=== PATIENT | female | born 1975 | race American Indian/Alaskan Native ===

== ENCOUNTER 2017-07-10 11:53 | Emergency (ER) | payer BC ==
--- NOTE | 2017-07-10 16:03 | XRay Report ---
ROUTINE CHEST, TWO VIEWS: Cough PA and lateral views demonstrate the heart and mediastinal contour to be of normal size and shape. The lungs are clear and fully expanded and the soft tissues and bony structures are normal. IMPRESSION: Normal study.
[2017-07-10] MEDS ORDERED: TESSALON PERLES PO ONE (16:49)
[2017-07-10] MEDS ORDERED: MOTRIN PO ONE (16:49)
[2017-07-10] MEDS ORDERED: MOTRIN ONE (16:51)
--- NOTE | 2017-07-10 16:54 | Emergency Department Report ---
- General Chief Complaint: Upper Respiratory Infection Stated Complaint: FLU-LIKE SYMPTOMS Time Seen by Provider: 07/10/17 15:35 Source: patient Mode of arrival: Ambulatory Limitations: No Limitations - History of Present Illness Initial Comments: This is a 41-year-old female nontoxic, well nourished in appearance, no acute signs of distress presents to the ED with c/o of productive cough, rhinorrhea, nasal congestion, body aches x3 days. Patient describes productive, yellow mucus production. Patient denies any sick contact. Patient denies any recent travels, long car rides or recent hospital stays. Denies hemoptysis, chest pain , short of breath, difficulty breathing, fever, chills, nausea, vomiting, abdominal pain, back pain, calf pain, calf tenderness. Patient denies any headache or stiff neck. Patient states past medical history includes headaches. Denies any drug allergies. MD Complaint: cough, rhinorrhea, nasal congestion -: days(s) (3) Severity: mild Severity scale (0 -10): 8 Quality: aching Consistency: constant Improves With: nothing Worsens With: nothing Associated Symptoms: rhinorrhea, nasal congestion, cough. denies: fever, chills , myalgias, diaphoresis, headache, sore throat, stiff neck, chest pain, shortness of breath, abdominal pain, nausea, vomiting, diarrhea, dysuria, rash, confusion, right sweats, weight loss, epistaxis, hoarseness, ear pain Treatments Prior to Arrival: none - Related Data Previous Rx's Medication Instructions Recorded Last Taken Type Levofloxacin [Levaquin] 500 mg PO QDAY #5 tablet 05/31/14 Unknown Rx metroNIDAZOLE [Flagyl] 500 mg PO Q8HR 5 Days tablet 05/31/14 Unknown Rx traMADol [Ultram 50 MG tab] 50 mg PO Q4HR PRN #20 tablet 05/31/14 Unknown Rx Famotidine [Pepcid] 20 mg PO Q12H #60 tablet 01/14/15 Unknown Rx Ondansetron [Zofran TAB] 8 mg PO Q8HR PRN #12 tablet 01/14/15 Unknown Rx Azithromycin [Zithromax Z-JOSELYN] 250 mg PO QDAY #6 tablet 12/15/15 Unknown Rx Benzonatate [Tessalon Perles] 100 mg PO Q8HR #14 capsule 12/15/15 Unknown Rx Cyclobenzaprine HCl [Flexeril 5 MG 5 mg PO TID PRN #10 tablet 12/15/15 Unknown Rx TAB] Azithromycin [Zithromax Z-JOSELYN] 250 mg PO DAILY #6 tablet 07/10/17 Unknown Rx Benzonatate [Tessalon Perle] 100 mg PO Q6H PRN #20 capsule 07/10/17 Unknown Rx Allergies Allergy/AdvReac Type Severity Reaction Status Date / Time No Known Allergies Allergy Verified 01/14/15 14:37 ED Review of Systems ROS: Stated complaint: FLU-LIKE SYMPTOMS Other details as noted in HPI Constitutional: denies: chills, fever Eyes: denies: eye pain, eye discharge, vision change ENT: denies: ear pain, throat pain Respiratory: cough. denies: shortness of breath, wheezing Cardiovascular: denies: chest pain, palpitations Endocrine: no symptoms reported Gastrointestinal: denies: abdominal pain, nausea, diarrhea Genitourinary: denies: urgency, dysuria, discharge Musculoskeletal: denies: back pain, joint swelling, arthralgia Skin: denies: rash, lesions Neurological: denies: headache, weakness, paresthesias Psychiatric: denies: anxiety, depression Hematological/Lymphatic: denies: easy bleeding, easy bruising ED Past Medical Hx - Past Medical History Previous Medical History?: Yes Hx Headaches / Migraines: Yes Additional medical history: fibroids, borderline diabetes, PCOS - Surgical History Past Surgical History?: Yes Additional Surgical History: Ovarian cyst removal, hernia repair. Myomectomy on 12/23/2014 - Social History Smoking Status: Never Smoker Substance Use Type: Alcohol, Non Opiate Pain, Other - Medications Home Medications: Home Medications Medication Instructions Recorded Confirmed Last Taken Type Levofloxacin [Levaquin] 500 mg PO QDAY #5 tablet 05/31/14 Unknown Rx metroNIDAZOLE [Flagyl] 500 mg PO Q8HR 5 Days tablet 05/31/14 Unknown Rx traMADol [Ultram 50 MG tab] 50 mg PO Q4HR PRN #20 tablet 05/31/14 Unknown Rx Famotidine [Pepcid] 20 mg PO Q12H #60 tablet 01/14/15 Unknown Rx Ondansetron [Zofran TAB] 8 mg PO Q8HR PRN #12 tablet 01/14/15 Unknown Rx Azithromycin [Zithromax Z-JOSELYN] 250 mg PO QDAY #6 tablet 12/15/15 Unknown Rx Benzonatate [Tessalon Perles] 100 mg PO Q8HR #14 capsule 12/15/15 Unknown Rx Cyclobenzaprine HCl [Flexeril 5 MG 5 mg PO TID PRN #10 tablet 12/15/15 Unknown Rx TAB] Azithromycin [Zithromax Z-JOSELYN] 250 mg PO DAILY #6 tablet 07/10/17 Unknown Rx Benzonatate [Tessalon Perle] 100 mg PO Q6H PRN #20 capsule 07/10/17 Unknown Rx ED Physical Exam - General Limitations: No Limitations General appearance: alert, in no apparent distress - Head Head exam: Present: atraumatic, normocephalic, normal inspection - Eye Eye exam: Present: normal appearance, PERRL, EOMI. Absent: scleral icterus, conjunctival injection, nystagmus, periorbital swelling, periorbital tenderness - ENT ENT exam: Present: normal exam, normal orophraynx, mucous membranes moist, TM's normal bilaterally, normal external ear exam - Neck Neck exam: Present: normal inspection, full ROM. Absent: tenderness, meningismus, lymphadenopathy, thyromegaly - Respiratory Respiratory exam: Present: normal lung sounds bilaterally. Absent: respiratory distress, wheezes, rales, rhonchi, stridor, chest wall tenderness, accessory muscle use, decreased breath sounds, prolonged expiratory - Cardiovascular Cardiovascular Exam: Present: regular rate, normal rhythm, normal heart sounds. Absent: bradycardia, tachycardia, irregular rhythm, systolic murmur, diastolic murmur, rubs, gallop - GI/Abdominal GI/Abdominal exam: Present: soft, normal bowel sounds. Absent: distended, tenderness, guarding, rebound, rigid, diminished bowel sounds - Rectal Rectal exam: Present: deferred - Extremities Exam Extremities exam: Present: normal inspection, full ROM, normal capillary refill. Absent: tenderness, pedal edema, joint swelling, calf tenderness - Back Exam Back exam: Present: normal inspection, full ROM. Absent: tenderness, CVA tenderness (R), CVA tenderness (L), muscle spasm, paraspinal tenderness, vertebral tenderness, rash noted - Neurological Exam Neurological exam: Present: alert, oriented X3, CN II-XII intact, normal gait, reflexes normal - Psychiatric Psychiatric exam: Present: normal affect, normal mood - Skin Skin exam: Present: warm, dry, intact, normal color. Absent: rash ED Course Vital Signs 07/10/17 12:09 Temperature 98.6 F Pulse Rate 88 Respiratory 18 Rate Blood Pressure 108/65 O2 Sat by Pulse 99 Oximetry - Reevaluation(s) Reevaluation #1: 07/10/17 16:52 Patient is speaking in full sentences with no signs of distress noted. ED Medical Decision Making - Medical Decision Making This is a 41-year-old female presents with upper respiratory infection. Patient stable and was examined by me. Chest x-ray has been obtained and the radiologist with normal exam. Wells criteria 0 points. No signs or indications of PE or DVT upon examination and physical history. Patient be treated with empirically azithromycin due to symptoms worsening. Patient received Tessalon Perle and the patient's symptoms of cough improving and subsided. Negative Influenza swab. Patient was instructed Follow-up with a primary care doctor in 3-5 days or if symptoms worsen and continue return to emergency room as soon as possible. At time time of discharge, the patient does not seem toxic or ill in appearance. No acute signs of distress noted. Patient agrees to discharge treatment plan of care. No further questions noted by the patient. Critical care attestation.: If time is entered above; I have spent that time in minutes in the direct care of this critically ill patient, excluding procedure time. ED Disposition Clinical Impression: Upper respiratory infection Qualifiers: URI type: unspecified URI Qualified Code(s): J06.9 - Acute upper respiratory infection, unspecified Disposition: DC-01 TO HOME OR SELFCARE Is pt being admited?: No Does the pt Need Aspirin: No Condition: Stable Instructions: Upper Respiratory Infection (ED), Azithromycin (By mouth), Benzonatate (By mouth) Additional Instructions: Follow-up with a primary care doctor in 3-5 days or if symptoms worsen and continue return to emergency room as soon as possible. Prescriptions: Azithromycin [Zithromax Z-JOSELYN] 250 mg PO DAILY #6 tablet Benzonatate [Tessalon Perle] 100 mg PO Q6H PRN #20 capsule PRN Reason: Cough Referrals: LICHA WEST MD [Primary Care Provider] - 3-5 Days PRIMARY CARE, [Referring] - 3-5 Days [facility] [Outside] - 3-5 Days [facility] [Outside] - 3-5 Days Forms: Work/School Release Form(ED)
[2017-07-10 17:53] VITALS: BP 121/80
== END 2017-07-10 17:51 | disposition home or self-care (01) ==
LOC: ED 11:53
DX: J06.9 Acute upper respiratory infection, unspecified (principal); G43.909 Migraine, unspecified, not intractable, without status migrainosus; E28.2 Polycystic ovarian syndrome; D21.9 Benign neoplasm of connective and other soft tissue, unspecified; Z98.890 Other specified postprocedural states
CPT/HCPCS: 71046; 87400; 99283

== ENCOUNTER 2020-12-08 22:01 | Emergency (ER) | payer BC ==
[2020-12-08 23:54] VITALS: BP 152/93
[2020-12-09 00:18] LABS: Mean Corpuscular HGB Conc 29 % (30-34); Mean Corpuscular Volume 70 fl (79-97); Platelet Count 377 K/mm3 (140-440); Red Blood Count 4.09 M/mm3 (3.65-5.03)
[2020-12-09 00:19] LABS: Hematocrit 28.8 % (30.3-42.9); Hemoglobin 8.5 gm/dl (10.1-14.3)
[2020-12-09 00:20] LABS: Red Cell Distribution Width 27.8 % (13.2-15.2)
[2020-12-09 01:46] LABS: Bacteria,Urine 1+ /HPF (Negative); Bilirubin,Urine NEG (Negative); Blood,Urine LG (Negative); Color,Urine Yellow (Yellow); Urobilinogen,Urine < 2.0 mg/dL (<2.0)
[2020-12-09 01:50] LABS: RBC,Urine > 182.0 /HPF (0.0-6.0)
[2020-12-09 01:52] LABS: Anisocytosis 2+; Total Cells Counted 100
[2020-12-09 01:53] LABS: Dimorphic RBC Yes; Hypochromasia 1+; Macrocytosis Few
[2020-12-09] MEDS ORDERED: traMADol 50 MG TAB PO ONE (02:36)
[2020-12-09] MEDS ORDERED: cephALEXin 500 MG CAP PO ONE (02:36)
[2020-12-09] MEDS ORDERED: FLUCONAZOLE 200 MG TAB PO ONE (02:48)
--- NOTE | 2020-12-09 04:12 | Emergency Department Report ---
ED Female HPI - General Chief complaint: Vaginal Bleeding Stated complaint: SHARP CRAMPS/OVARY PAIN/CLOTS Time Seen by Provider: 12/09/20 02:20 Source: patient Mode of arrival: Ambulatory Limitations: No Limitations - History of Present Illness Initial comments: Patient is a 45-year-old -[place] female with history of ovarian cyst, who presents with dysuria frequency and urgency. pt has [facility] , states she is out of pain medication. pt denies fever chills. there are no exacerbating or relieving factors. MD Complaint: vaginal bleeding - Related Data Previous Rx's Medication Instructions Recorded Last Taken Type levoFLOXacin [Levaquin] 500 mg PO QDAY #5 tablet 05/31/14 Unknown Rx metroNIDAZOLE [Flagyl] 500 mg PO Q8HR 5 Days tablet 05/31/14 Unknown Rx traMADoL [Ultram 50 MG tab] 50 mg PO Q4HR PRN #20 tablet 05/31/14 Unknown Rx Famotidine [Pepcid] 20 mg PO Q12H #60 tablet 01/14/15 Unknown Rx Ondansetron (Nf) [Zofran TAB] 8 mg PO Q8HR PRN #12 tablet 01/14/15 Unknown Rx Azithromycin [Zithromax Z-JOSELYN] 250 mg PO QDAY #6 tablet 12/15/15 Unknown Rx Cyclobenzaprine HCl [Flexeril 5 MG 5 mg PO TID PRN #10 tablet 12/15/15 Unknown Rx TAB] Azithromycin [Zithromax Z-JOSELYN] 250 mg PO DAILY #6 tablet 07/10/17 Unknown Rx Benzonatate [Tessalon Perle] 100 mg PO Q6H PRN #20 capsule 07/10/17 Unknown Rx Benzonatate [Tessalon Perles] 100 mg PO Q8HR #14 capsule 06/10/18 Unknown Rx Ibuprofen [Motrin 600 MG tab] 600 mg PO Q8H PRN #15 tablet 06/10/18 Unknown Rx Sulfamethoxazole/Trimethoprim 1 each PO BID #20 tablet 06/10/18 Unknown Rx [Bactrim Ds Tablet] cephALEXin [Keflex] 500 mg PO Q12HR 7 Days #14 cap 12/09/20 Unknown Rx traMADoL [Ultram] 50 mg PO Q6HR PRN #12 tablet 12/09/20 Unknown Rx Allergies Allergy/AdvReac Type Severity Reaction Status Date / Time No Known Allergies Allergy Verified 01/14/15 14:37 ED Review of Systems ROS: Stated complaint: SHARP CRAMPS/OVARY PAIN/CLOTS Other details as noted in HPI Constitutional: denies: chills, fever Eyes: denies: eye pain, eye discharge, vision change ENT: denies: ear pain, throat pain Respiratory: denies: cough, shortness of breath, wheezing Cardiovascular: denies: chest pain, palpitations Endocrine: no symptoms reported Gastrointestinal: denies: abdominal pain, nausea, diarrhea Genitourinary: urgency, dysuria, frequency, abnormal menses Musculoskeletal: back pain Skin: denies: rash, lesions Neurological: denies: headache, weakness, paresthesias Psychiatric: denies: anxiety, depression Hematological/Lymphatic: denies: easy bleeding, easy bruising ED Past Medical Hx - Past Medical History Previous Medical History?: Yes Hx Headaches / Migraines: Yes Additional medical history: fibroids, borderline diabetes, PCOS, Endometreosis - Surgical History Past Surgical History?: Yes Additional Surgical History: Ovarian cyst removal, hernia repair. Myomectomy on 12/23/2014 - Social History Smoking Status: Never Smoker Substance Use Type: None - Medications Home Medications: Home Medications Medication Instructions Recorded Confirmed Last Taken Type levoFLOXacin [Levaquin] 500 mg PO QDAY #5 tablet 05/31/14 Unknown Rx metroNIDAZOLE [Flagyl] 500 mg PO Q8HR 5 Days tablet 05/31/14 Unknown Rx traMADoL [Ultram 50 MG tab] 50 mg PO Q4HR PRN #20 tablet 05/31/14 Unknown Rx Famotidine [Pepcid] 20 mg PO Q12H #60 tablet 01/14/15 Unknown Rx Ondansetron (Nf) [Zofran TAB] 8 mg PO Q8HR PRN #12 tablet 01/14/15 Unknown Rx Azithromycin [Zithromax Z-JOSELYN] 250 mg PO QDAY #6 tablet 12/15/15 Unknown Rx Cyclobenzaprine HCl [Flexeril 5 MG 5 mg PO TID PRN #10 tablet 12/15/15 Unknown Rx TAB] Azithromycin [Zithromax Z-JOSELYN] 250 mg PO DAILY #6 tablet 07/10/17 Unknown Rx Benzonatate [Tessalon Perle] 100 mg PO Q6H PRN #20 capsule 07/10/17 Unknown Rx Benzonatate [Tessalon Perles] 100 mg PO Q8HR #14 capsule 06/10/18 Unknown Rx Ibuprofen [Motrin 600 MG tab] 600 mg PO Q8H PRN #15 tablet 06/10/18 Unknown Rx Sulfamethoxazole/Trimethoprim 1 each PO BID #20 tablet 06/10/18 Unknown Rx [Bactrim Ds Tablet] cephALEXin [Keflex] 500 mg PO Q12HR 7 Days #14 cap 12/09/20 Unknown Rx traMADoL [Ultram] 50 mg PO Q6HR PRN #12 tablet 12/09/20 Unknown Rx ED Physical Exam - General Limitations: No Limitations General appearance: alert, in no apparent distress - Head Head exam: Present: atraumatic, normocephalic - Eye Eye exam: Present: normal appearance, EOMI Pupils: Present: normal accommodation - ENT ENT exam: Present: mucous membranes moist - Neck Neck exam: Present: normal inspection, full ROM. Absent: tenderness - Respiratory Respiratory exam: Present: normal lung sounds bilaterally. Absent: respiratory distress, wheezes - Cardiovascular Cardiovascular Exam: Present: regular rate, normal rhythm, normal heart sounds. Absent: systolic murmur, diastolic murmur, rubs, gallop - GI/Abdominal GI/Abdominal exam: Present: soft, normal bowel sounds. Absent: distended, tenderness, guarding, rebound, rigid - Rectal Rectal exam: Present: deferred - External exam: Present: other (deferred) - Extremities Exam Extremities exam: Present: normal inspection, full ROM, normal capillary refill. Absent: tenderness - Back Exam Back exam: Present: normal inspection, full ROM. Absent: tenderness, CVA tenderness (R), CVA tenderness (L) - Neurological Exam Neurological exam: Present: alert, oriented X3, CN II-XII intact, normal gait, reflexes normal. Absent: motor sensory deficit - Psychiatric Psychiatric exam: Present: normal affect, normal mood - Skin Skin exam: Present: warm, dry, intact, normal color. Absent: rash ED Course Vital Signs 12/08/20 23:51 Temperature 98.6 F Pulse Rate 82 Respiratory 18 Rate Blood Pressure 152/93 O2 Sat by Pulse 100 Oximetry ED Medical Decision Making - Lab Data Result diagrams: 12/09/20 00:08 Labs 12/09/20 12/09/20 12/09/20 00:08 00:08 00:08 WBC 12.9 H RBC 4.09 Hgb 8.5 L Hct 28.8 L MCV 70 L MCH 21 L MCHC 29 L RDW 27.8 H Plt Count 377 Add Manual Diff Complete Total Counted 100 Seg Neuts % (Manual) 70.0 Lymphocytes % (Manual) 26.0 Monocytes % (Manual) 3.0 Eosinophils % (Manual) 1.0 Nucleated RBC % Not Reportable Seg Neutrophils # Man 9.0 H Band Neutrophils # 0.0 Lymphocytes # (Manual) 3.4 Abs React Lymphs (Man) 0.0 Monocytes # (Manual) 0.4 Eosinophils # (Manual) 0.1 Basophils # (Manual) 0.0 Metamyelocytes # 0.0 Myelocytes # 0.0 Promyelocytes # 0.0 Blast Cells # 0.0 WBC Morphology Not Reportable Hypersegmented Neuts Not Reportable Hyposegmented Neuts Not Reportable Hypogranular Neuts Not Reportable Smudge Cells Not Reportable Toxic Granulation Not Reportable Toxic Vacuolation Not Reportable Dohle Bodies Not Reportable Pelger-Huet Anomaly Not Reportable Renee Rods Not Reportable Platelet Estimate Not Reportable Clumped Platelets Not Reportable Plt Clumps, EDTA Not Reportable Large Platelets Not Reportable Giant Platelets Not Reportable Platelet Satelliting Not Reportable Plt Morphology Comment Not Reportable RBC Morphology Not Reportable Dimorphic RBCs Yes Polychromasia Not Reportable Hypochromasia 1+ Poikilocytosis Not Reportable Anisocytosis 2+ Microcytosis 1+ Macrocytosis Few Spherocytes Not Reportable Pappenheimer Bodies Not Reportable Sickle Cells Not Reportable Target Cells Not Reportable Tear Drop Cells Not Reportable Ovalocytes Not Reportable Helmet Cells Not Reportable [place] Bodies Not Reportable [place] Rings Not Reportable [place] Cells Not Reportable Bite Cells Not Reportable Crenated Cell Not Reportable Elliptocytes Not Reportable Acanthocytes (Spur) Not Reportable Rouleaux Not Reportable Hemoglobin C Crystals Not Reportable Schistocytes Not Reportable Malaria parasites Not Reportable Bob Bodies Not Reportable Hem Pathologist Commnt No HCG, Quant < 2 Urine Color Urine Turbidity Urine pH Ur Specific [place] Urine Protein Urine Glucose (UA) Urine Ketones Urine Blood Urine Nitrite Urine Bilirubin Urine Urobilinogen Ur Leukocyte Esterase Urine WBC (Auto) Urine RBC (Auto) Urine Bacteria (Auto) Urine Yeast (Budding) Blood Type O POSITIVE 12/09/20 Unknown WBC RBC Hgb Hct MCV MCH MCHC RDW Plt Count Add Manual Diff Total Counted Seg Neuts % (Manual) Lymphocytes % (Manual) Monocytes % (Manual) Eosinophils % (Manual) Nucleated RBC % Seg Neutrophils # Man Band Neutrophils # Lymphocytes # (Manual) Abs React Lymphs (Man) Monocytes # (Manual) Eosinophils # (Manual) Basophils # (Manual) Metamyelocytes # Myelocytes # Promyelocytes # Blast Cells # WBC Morphology Hypersegmented Neuts Hyposegmented Neuts Hypogranular Neuts Smudge Cells Toxic Granulation Toxic Vacuolation Dohle Bodies Pelger-Huet Anomaly Renee Rods Platelet Estimate Clumped Platelets Plt Clumps, EDTA Large Platelets Giant Platelets Platelet Satelliting Plt Morphology Comment RBC Morphology Dimorphic RBCs Polychromasia Hypochromasia Poikilocytosis Anisocytosis Microcytosis Macrocytosis Spherocytes Pappenheimer Bodies Sickle Cells Target Cells Tear Drop Cells Ovalocytes Helmet Cells [place] Bodies [place] Rings [place] Cells Bite Cells Crenated Cell Elliptocytes Acanthocytes (Spur) Rouleaux Hemoglobin C Crystals Schistocytes Malaria parasites Bob Bodies Hem Pathologist Commnt HCG, Quant Urine Color Yellow Urine Turbidity Slightly-cloudy Urine pH 5.0 Ur Specific [place]ell 1.024 Urine Protein 100 mg/dl Urine Glucose (UA) Neg Urine Ketones Tr Urine Blood Lg Urine Nitrite Neg Urine Bilirubin Neg Urine Urobilinogen < 2.0 Ur Leukocyte Esterase Tr Urine WBC (Auto) 67.0 H Urine RBC (Auto) > 182.0 Urine Bacteria (Auto) 1+ Urine Yeast (Budding) 2+ Blood Type - Radiology Data Radiology results: report reviewed, image reviewed - Medical Decision Making Patient has history of ovarian cyst and fibroids, patient is following with [facility] for this problem. Bleeding is scant at this time. There is no fever or chills. UA noted for mild yeast and bacteria. Patient treated for UTI and vaginitis [place]. Patient will follow-up with [facility] in 1 to 2 days. Patient verbalized agreement and understanding with discharge plan. Patient DC'd home in stable condition at this time. Critical care attestation.: If time is entered above; I have spent that time in minutes in the direct care of this critically ill patient, excluding procedure time. ED Disposition Clinical Impression: Abnormal uterine bleeding (AUB) Ovarian cyst Qualifiers: Laterality: bilateral Qualified Code(s): N83.201 - Unspecified ovarian cyst, right side; N83.202 - Unspecified ovarian cyst, left side UTI (urinary tract infection) Qualifiers: Urinary tract infection type: acute cystitis Hematuria presence: without hematuria Qualified Code(s): N30.00 - Acute cystitis without hematuria Disposition: TO HOME OR SELFCARE Is pt being admited?: No Does the pt Need Aspirin: No Condition: Stable Instructions: Abnormal Uterine Bleeding, Ovarian Cyst, Urinary Tract Infection, Adult Additional Instructions: Take medications as prescribed. Follow-up with [facility] in 2 to 3 days. Return to emergency department should symptoms worsen. Prescriptions: cephALEXin [Keflex] 500 mg PO Q12HR 7 Days #14 cap traMADoL [Ultram] 50 mg PO Q6HR PRN #12 tablet PRN Reason: Pain Referrals: [facility] MD ERICKA [Primary Care Provider] - 3-5 Days CHRISTIANA JONES MD [Staff Physician] - 3-5 Days Forms: Work/School Release Form(ED) Time of Disposition: 04:13
== END 2020-12-09 04:22 | disposition home or self-care (01) ==
LOC: ED 22:01
DX: N39.0 Urinary tract infection, site not specified (principal); N83.209 Unspecified ovarian cyst, unspecified side; N93.9 Abnormal uterine and vaginal bleeding, unspecified; G43.909 Migraine, unspecified, not intractable, without status migrainosus; Z98.890 Other specified postprocedural states; Z79.1 Long term (current) use of non-steroidal anti-inflammatories (NSAID); Z79.2 Long term (current) use of antibiotics; Z79.899 Other long term (current) drug therapy
CPT/HCPCS: 36415; 81001; 84702; 85007; 85025; 86900; 86901; 87086

== ENCOUNTER 2020-12-28 17:51 | Emergency (ER) | payer BC ==
[2020-12-28] MEDS ORDERED: ASPIRIN 325 MG TAB PO ONE (18:23)
--- NOTE | 2020-12-28 19:00 | XRay Report ---
CHEST PA AND LATERAL VIEWS INDICATION: CHEST PAIN....CHEST PAIN. STARTED LAST SATURDAY. RADIATES TO SHOULDER AND BACK.. COMPARISON: 07/10/2017 FINDINGS: Support devices: None Heart: Normal and unchanged Lungs/Pleura: No acute pulmonary or pleural findings. IMPRESSION: 1. No significant abnormality and no interval change. Signer Name: Armando Marshall MD Signed: 12/28/2020 6:55 PM Workstation Name: [id number]
[2020-12-28 19:50] LABS: Hematocrit 26.4 % (30.3-42.9); Hemoglobin 8.1 gm/dl (10.1-14.3); Mean Corpuscular HGB Conc 31 % (30-34); Mean Corpuscular Volume 73 fl (79-97); Platelet Count 385 K/mm3 (140-440)
[2020-12-28 19:51] LABS: Red Cell Distribution Width 26.1 % (13.2-15.2)
[2020-12-28 19:59] LABS: Alanine Aminotransferase 11 units/L (7-56); Albumin 4.3 g/dL (3.9-5); Blood Urea Nitrogen 6 mg/dL (7-17); Calcium 9.3 mg/dL (8.4-10.2); Hemolysis Index 1
[2020-12-28 20:00] LABS: BUN/Creatinine Ratio 9
[2020-12-28 20:31] LABS: Total Cells Counted 100
[2020-12-28 20:32] LABS: Anisocytosis 3+; Hypochromasia 2+; Ovalocytes Few; Poikilocytosis 1+
[2020-12-28 20:33] LABS: Platelet Estimate Consistent w Auto; Tear Drop Cells Few
--- NOTE | 2020-12-28 22:55 | Emergency Department Report ---
ED Chest Pain HPI - General Chief Complaint: Chest Pain Stated Complaint: CHEST PAINS PUI?: No Time Seen by Provider: 12/28/20 22:10 Source: patient Mode of arrival: Ambulatory Limitations: No Limitations - History of Present Illness Initial Comments: Patient is a 45-year-old female that presents emergency room with complaints of chest pain. Patient states her chest pain in her left chest radiates to her left shoulder and her left posterior neck and left trapezius muscles. Patient states that her chest pain started 4 days ago. Patient states her chest pain has remained constant. Patient denies shortness of breath. Patient states the pain is worse with movement and palpation. Patient states the pain is better with rest. Patient denies fever chills. Patient denies nausea vomiting. Patient states she has a past medical history of anemia. Patient states she does not have a past medical history of hypertension. Patient denies diaphoresis. Patient denies nausea vomiting. Patient states she has not seen her primary care. Patient states her pain is an 8 out of 10. Patient denies recent travel. Patient denies recent international travel. Patient denies exposure to the novel coronavirus. Patient denies sick contacts. Patient denies fever and chills. Patient denies cough. Patient denies diarrhea. Patient denies coming in contact with anybody with symptoms of the novel coronavirus. MD Complaint: chest pain -: Sudden, days(s) Onset: during rest Pain Location: left chest Pain Radiation: back, neck Severity: severe Severity scale (0 -10): 8 Quality: sharp Consistency: constant Improves With: rest Worsens With: palpation, movement re: denies: nausea, vomting, diaphoresis, dyspnea, sense of impending doom Other Symptoms: denies: cough, fever, syncope, rash, acid taste in mouth, leg swelling, palpitations, burping Treatments Prior to Arrival: none Aspirin use within the Past 7 Days: (0) No - Related Data On Oral Contraceptives: No Previous Rx's Medication Instructions Recorded Last Taken Type levoFLOXacin [Levaquin] 500 mg PO QDAY #5 tablet 05/31/14 Unknown Rx metroNIDAZOLE [Flagyl] 500 mg PO Q8HR 5 Days tablet 05/31/14 Unknown Rx Famotidine [Pepcid] 20 mg PO Q12H #60 tablet 01/14/15 Unknown Rx Ondansetron (Nf) [Zofran TAB] 8 mg PO Q8HR PRN #12 tablet 01/14/15 Unknown Rx Azithromycin [Zithromax Z-JOSELYN] 250 mg PO QDAY #6 tablet 12/15/15 Unknown Rx Azithromycin [Zithromax Z-JOSELYN] 250 mg PO DAILY #6 tablet 07/10/17 Unknown Rx Benzonatate [Tessalon Perle] 100 mg PO Q6H PRN #20 capsule 07/10/17 Unknown Rx Benzonatate [Tessalon Perles] 100 mg PO Q8HR #14 capsule 06/10/18 Unknown Rx Ibuprofen [Motrin 600 MG tab] 600 mg PO Q8H PRN #15 tablet 06/10/18 Unknown Rx Sulfamethoxazole/Trimethoprim 1 each PO BID #20 tablet 06/10/18 Unknown Rx [Bactrim Ds Tablet] cephALEXin [Keflex] 500 mg PO Q12HR 7 Days #14 cap 12/09/20 Unknown Rx traMADoL [Ultram] 50 mg PO Q6HR PRN #12 tablet 12/09/20 Unknown Rx Cyclobenzaprine HCl [Flexeril 5 MG 5 mg PO TID PRN #10 tablet 12/28/20 Unknown Rx TAB] Iron Fum,Ps/Folic/Bcomp,C No.9 1 each PO BID 30 Days #60 capsule 12/28/20 Unknown Rx [Integra Plus Capsule] traMADoL [Ultram 50 MG tab] 50 mg PO Q4HR PRN #12 tablet 12/28/20 Unknown Rx Allergies Allergy/AdvReac Type Severity Reaction Status Date / Time No Known Allergies Allergy Verified 12/28/20 18:16 Heart Score - HEART Score History: Slightly suspicious EKG: Normal Age: < 45 Risk factors: No known risk factors Troponin: < normal limit HEART Score: 0 - EKG Read Time Time EKG Completed: 18:25 EKG Read Time: 18:27 ED Review of Systems ROS: Stated complaint: CHEST PAINS Other details as noted in HPI Constitutional: denies: chills, fever Eyes: denies: eye pain, eye discharge, vision change ENT: denies: ear pain, throat pain Respiratory: denies: cough, shortness of breath, wheezing Cardiovascular: as per HPI, chest pain. denies: palpitations Endocrine: no symptoms reported Gastrointestinal: denies: abdominal pain, nausea, diarrhea Genitourinary: denies: urgency, dysuria, discharge Musculoskeletal: denies: back pain, joint swelling, arthralgia Skin: denies: rash, lesions Neurological: denies: headache, weakness, paresthesias Psychiatric: denies: anxiety, depression Hematological/Lymphatic: denies: easy bleeding, easy bruising ED Past Medical Hx - Past Medical History Previous Medical History?: Yes Hx Headaches / Migraines: Yes Additional medical history: fibroids, borderline diabetes, PCOS, Endometreosis, anemia - Surgical History Past Surgical History?: Yes Additional Surgical History: Ovarian cyst removal, hernia repair. Myomectomy on 12/23/2014 - Family History Family history: no significant - Social History Smoking Status: Never Smoker Substance Use Type: Alcohol - Medications Home Medications: Home Medications Medication Instructions Recorded Confirmed Last Taken Type levoFLOXacin [Levaquin] 500 mg PO QDAY #5 tablet 05/31/14 Unknown Rx metroNIDAZOLE [Flagyl] 500 mg PO Q8HR 5 Days tablet 05/31/14 Unknown Rx Famotidine [Pepcid] 20 mg PO Q12H #60 tablet 01/14/15 Unknown Rx Ondansetron (Nf) [Zofran TAB] 8 mg PO Q8HR PRN #12 tablet 01/14/15 Unknown Rx Azithromycin [Zithromax Z-JOSELYN] 250 mg PO QDAY #6 tablet 12/15/15 Unknown Rx Azithromycin [Zithromax Z-JOSELYN] 250 mg PO DAILY #6 tablet 07/10/17 Unknown Rx Benzonatate [Tessalon Perle] 100 mg PO Q6H PRN #20 capsule 07/10/17 Unknown Rx Benzonatate [Tessalon Perles] 100 mg PO Q8HR #14 capsule 06/10/18 Unknown Rx Ibuprofen [Motrin 600 MG tab] 600 mg PO Q8H PRN #15 tablet 06/10/18 Unknown Rx Sulfamethoxazole/Trimethoprim 1 each PO BID #20 tablet 06/10/18 Unknown Rx [Bactrim Ds Tablet] cephALEXin [Keflex] 500 mg PO Q12HR 7 Days #14 cap 12/09/20 Unknown Rx traMADoL [Ultram] 50 mg PO Q6HR PRN #12 tablet 12/09/20 Unknown Rx Cyclobenzaprine HCl [Flexeril 5 MG 5 mg PO TID PRN #10 tablet 12/28/20 Unknown Rx TAB] Iron Fum,Ps/Folic/Bcomp,C No.9 1 each PO BID 30 Days #60 capsule 12/28/20 Unknown Rx [Integra Plus Capsule] traMADoL [Ultram 50 MG tab] 50 mg PO Q4HR PRN #12 tablet 12/28/20 Unknown Rx ED Physical Exam - General Limitations: No Limitations General appearance: alert, in no apparent distress - Head Head exam: Present: atraumatic, normocephalic - Eye Eye exam: Present: normal appearance - ENT ENT exam: Present: mucous membranes moist - Neck Neck exam: Present: normal inspection - Respiratory Respiratory exam: Present: normal lung sounds bilaterally, chest wall tender ness. Absent: respiratory distress, wheezes, rales, rhonchi, stridor - Cardiovascular Cardiovascular Exam: Present: regular rate, normal rhythm. Absent: systolic murmur, diastolic murmur, rubs, gallop - GI/Abdominal GI/Abdominal exam: Present: soft, normal bowel sounds - Extremities Exam Extremities exam: Present: normal inspection - Back Exam Back exam: Present: normal inspection - Neurological Exam Neurological exam: Present: alert, oriented X3 - Psychiatric Psychiatric exam: Present: normal affect, normal mood - Skin Skin exam: Present: warm, dry, intact, normal color. Absent: rash ED Course Vital Signs 12/28/20 12/28/20 18:22 22:15 Temperature 98.8 F Pulse Rate 76 84 Respiratory 20 17 Rate Blood Pressure 133/79 177/90 O2 Sat by Pulse 99 100 Oximetry - Reevaluation(s) Reevaluation #1: I discussed all results and clinical findings with patient. I discussed plan of care with patient. Patient agrees with plan of care. Patient is stable for discharge. Patient will be discharged home. Patient given discharge instructions. Patient voiced understanding of discharge instructions. Patient information faxed over to our local cardiology group for further evaluation treatment of her stratification of chest pain. 12/28/20 23:02 SAVAGE score - Savage Score Age > 65: (0) No Aspirin use within the Past 7 Days: (0) No 3 or more CAD Risk Factors: (0) No 2 or more Angina events in past 24 hrs: (0) No Known CAD with more than 50% Stenosis: (0) No Elevated Cardiac Markers: (0) No ST Deviation Greater than 0.5mm: (0) No SAVAGE Score: 0 ED Medical Decision Making - Lab Data Result diagrams: 12/28/20 19:14 12/28/20 19:14 - EKG Data -: EKG Interpreted by Me EKG shows normal: sinus rhythm, axis, intervals, QRS complexes, ST-T waves Rate: normal - Radiology Data Radiology results: report reviewed, image reviewed interpreted by me: Chest x-ray: No pneumonia, no pneumothorax, no foreign body, no osseous findings, no acute findings CHEST PA AND LATERAL VIEWS INDICATION: CHEST PAIN....CHEST PAIN. STARTED LAST SATURDAY. RADIATES TO SHOULDER AND BACK.. COMPARISON: 07/10/2017 FINDINGS: Support devices: None Heart: Normal and unchanged Lungs/Pleura: No acute pulmonary or pleural findings. IMPRESSION: 1. No significant abnormality and no interval change. - Medical Decision Making Patient is a 45-year-old female who presents emergency room with complaints of chest pain. Patient chest pain rating to her left shoulder and back and posterior neck. Patient's chest pain was reproducible on exam with palpation. Patient's neck pain and shoulder pain reproduced with movement and palpation. Patient had labs done which were essentially unremarkable except for anemia. Patient had 2 neg troponins. Patient's chest pain is low risk. Since the patient presents emergency room with complaints of chest pain, the patient's information will be faxed over to local cardiology group for further evaluation and treatment with stratification. Patient had a chest x-ray which was negative for acute finding. Patient had an EKG which was negative for acute findings. I personally reviewed the chest x-ray and EKG. Patient will be discharged home with pain medications. Patient does not require any further emergency medical services or inpatient services. - Differential Diagnosis Musculoskeletal, chest pain, anxiety, chest wall sprain Critical care attestation.: If time is entered above; I have spent that time in minutes in the direct care of this critically ill patient, excluding procedure time. ED Disposition Clinical Impression: Chest wall pain Chest pain Qualifiers: Chest pain type: unspecified Qualified Code(s): R07.9 - Chest pain, unspecified Hypertension Qualifiers: Hypertension type: essential hypertension Qualified Code(s): I10 - Essential (primary) hypertension Anemia Qualifiers: Anemia type: unspecified type Qualified Code(s): D64.9 - Anemia, unspecified Disposition: DC-01 TO HOME OR SELFCARE Is pt being admited?: No Does the pt Need Aspirin: No Condition: Stable Instructions: Chest Wall Pain, [id number], Nonspecific Chest Pain, Adult, [id number], Preventing Hypertension, Hypertension (ED) Additional Instructions: Patient to follow-up with primary care in 2 to 3 days. Patient to follow-up with orthopedist and combination man in 2 to 3 days. Patient to rest. Patient to increase water. Patient to avoid strenuous exercise or heavy lifting until cleared by orthopedist and combination man. Patient to take Tylenol or ibuprofen as needed for pain. Patient to take meds as directed. Patient to return to the ER if condition worsens, changes or new symptoms arise. Patient to eat a low-salt and heart healthy diet. Patient to monitor blood pressure at home. Patient to keep a blood pressure log. Patient take blood pressure log to all follow-up appointments. Patient to increase water. Prescriptions: Cyclobenzaprine HCl [Flexeril 5 MG TAB] 5 mg PO TID PRN #10 tablet PRN Reason: Pain Iron Fum,Ps/Folic/Bcomp,C No.9 [Integra Plus Capsule] 1 each PO BID 30 Days #60 capsule traMADoL [Ultram 50 MG tab] 50 mg PO Q4HR PRN #12 tablet PRN Reason: Pain Referrals: MATT LAGUNAS MD [Primary Care Provider] - 2-3 Days AURELIANO PERLA MD [Staff Physician] - 2-3 Days NATASHA TURPIN MD [Staff Physician] - 2-3 Days Time of Disposition: 23:02
[2020-12-28 23:27] VITALS: BP 117/65
--- NOTE | 2020-12-29 09:17 | Electrocardiograph Report ---
[facility] Test Date: 2020-12-28 Test Time: 18:25:32 Pat Name: DOROTHY MENJIVAR Department: Room: Gender: F Medical Insurance Collector: KYLER : [id number] Requested By: JORGE DAVISON III Order Number: [id number] Reading MD: Onesimo Yarbrough Measurements Intervals [place] Rate: 87 P: 48 IA: 146 QRS: 18 QRSD: 84 T: 33 QT: 396 QTc: 477 Interpretive Statements Sinus rhythm nonspecific st-t No previous ECG available for comparison Electronically Signed On 12-29-2020 9:17:16 EDT by Onesimo Yarbrough
== END 2020-12-28 23:37 | disposition home or self-care (01) ==
LOC: ED 17:51
DX: D64.9 Anemia, unspecified (principal); R07.89 Other chest pain; I10 Essential (primary) hypertension; G43.909 Migraine, unspecified, not intractable, without status migrainosus; Z98.890 Other specified postprocedural states; Z79.1 Long term (current) use of non-steroidal anti-inflammatories (NSAID); Z79.2 Long term (current) use of antibiotics; Z79.899 Other long term (current) drug therapy
CPT/HCPCS: 36415; 71046; 80053; 84484; 85007; 85025; 93005

== ENCOUNTER 2021-11-23 13:06 | Emergency (ER) | payer SELFPAY ==
[2021-11-23 15:52] LABS: Basophils # (Auto) 0.1 K/mm3 (0.0-0.1); Basophils % (Auto) 0.8 % (0.0-1.8); Eosinophils # (Auto) 0.1 K/mm3 (0.0-0.4); Eosinophils % (Auto) 0.7 % (0.0-4.3); Hematocrit 32.9 % (30.3-42.9); Lymphocytes # (Auto) 1.8 K/mm3 (1.2-5.4); Lymphocytes % (Auto) 19.5 % (13.4-35.0); Mean Corpuscular HGB Conc 30 % (30-34); Mean Corpuscular Volume 70 fl (79-97); Monocytes # (Auto) 0.5 K/mm3 (0.0-0.8); Monocytes % (Auto) 5.7 % (0.0-7.3); Platelet Count 385 K/mm3 (140-440); Red Blood Count 4.68 M/mm3 (3.65-5.03); Red Cell Distribution Width 19.3 % (13.2-15.2)
[2021-11-23 16:07] LABS: Blood Urea Nitrogen 6 mg/dL (7-17); Calcium 9.4 mg/dL (8.4-10.2); Hemolysis Index 1
[2021-11-23 16:08] LABS: BUN/Creatinine Ratio 9
[2021-11-23] MEDS ORDERED: oxyCODONE /ACETAMINOPHEN 5-325MG TAB PO ONE ×2 (20:23→23:10)
[2021-11-23] MEDS ORDERED: ONDANSETRON 4 MG ODT TAB PO ONE ×2 (20:23→23:10)
[2021-11-23 20:39] LABS: Bilirubin,Urine NEG (Negative); Blood,Urine LG (Negative); Color,Urine Red (Yellow); Mucus,Urine 1+ /HPF; Urobilinogen,Urine < 2.0 mg/dL (<2.0)
[2021-11-23 20:41] LABS: RBC,Urine > 182.0 /HPF (0.0-6.0)
--- NOTE | 2021-11-23 22:20 | Emergency Department Report ---
ED Abdominal Pain HPI - General Chief Complaint: Abdominal Pain Stated Complaint: CRAMPS/VOMITING/CLOTS/LEG PAIN Source: patient Mode of arrival: Ambulatory Limitations: No Limitations - History of Present Illness Initial Comments: Patient is a 46-year-old -[place] female with a history of migraine headaches, asthma, uterine fibroids, PCOS, endometriosis and chronic iron deficiency anemia presents to the ED with complaint of acute onset persistent suprapubic pain with nausea and vomiting for the last 2 days after the onset of her menstrual cycle. Patient states that she usually experiences dysmenorrhea but the current symptoms of pelvic pain are worse than what she has experienced before, with nausea and vomiting despite taking ibuprofen at home. Patient states that in the last 12 hours she has seen large chunks of blood clots with her menstrual cycle. Patient denies dizziness, syncope, chest pain or shortness of breath, fever, chills, dysuria, urinary frequency and urgency, low back pain, vaginal discharge, diarrhea or headache. MD Complaint: abdominal pain, other (heavy vaginal bleeding) -: Sudden, days(s) (2) Location: suprapubic Radiation: none Migration to: no migration Severity scale (0 -10): 7 Quality: cramping, aching, sharp Consistency: constant Improves With: nothing Worsens With: nothing Context: other (dysmenorrhea) Associated Symptoms: denies other symptoms, nausea, vomiting Treatments Prior to Arrival: NSAIDs - Related Data LMP Date: 11/21/21 Previous Rx's Medication Instructions Recorded Last Taken Type levoFLOXacin [Levaquin] 500 mg PO QDAY #5 tablet 05/31/14 Unknown Rx metroNIDAZOLE [Flagyl] 500 mg PO Q8HR 5 Days tablet 05/31/14 Unknown Rx Famotidine [Pepcid] 20 mg PO Q12H #60 tablet 01/14/15 Unknown Rx Ondansetron (Nf) [Zofran TAB] 8 mg PO Q8HR PRN #12 tablet 01/14/15 Unknown Rx Azithromycin [Zithromax Z-JOSELYN] 250 mg PO QDAY #6 tablet 12/15/15 Unknown Rx Azithromycin [Zithromax Z-JOSELYN] 250 mg PO DAILY #6 tablet 07/10/17 Unknown Rx Benzonatate [Tessalon Perle] 100 mg PO Q6H PRN #20 capsule 07/10/17 Unknown Rx Benzonatate [Tessalon Perles] 100 mg PO Q8HR #14 capsule 06/10/18 Unknown Rx Ibuprofen [Motrin 600 MG tab] 600 mg PO Q8H PRN #15 tablet 06/10/18 Unknown Rx Sulfamethoxazole/Trimethoprim 1 each PO BID #20 tablet 06/10/18 Unknown Rx [Bactrim Ds Tablet] traMADoL [Ultram] 50 mg PO Q6HR PRN #12 tablet 12/09/20 Unknown Rx Cyclobenzaprine HCl [Flexeril 5 MG 5 mg PO TID PRN #10 tablet 12/28/20 Unknown Rx TAB] Amoxicillin [Trimox] 1,000 mg PO Q8HR 7 Days capsule 04/15/21 Unknown Rx Azithromycin [Zithromax Z-JOSELYN] 250 mg PO DAILY #6 tablet 04/15/21 Unknown Rx Ibuprofen [Motrin] 800 mg PO Q8HR PRN #30 tablet 11/23/21 Unknown Rx Iron Fum,Ps/Folic/Bcomp,C No.9 1 each PO BID 30 Days #60 capsule 11/23/21 Unknown Rx [Integra Plus Capsule] Ondansetron [Zofran Odt] 4 mg PO Q8HR PRN #15 tab.rapdis 11/23/21 Unknown Rx cephALEXin [Keflex] 500 mg PO Q8HR 10 Days #30 cap 11/23/21 Unknown Rx traMADoL [Ultram 50 MG tab] 50 mg PO Q4HR PRN #12 tablet 11/23/21 Unknown Rx Allergies Allergy/AdvReac Type Severity Reaction Status Date / Time No Known Allergies Allergy Verified 11/23/21 14:21 ED Review of Systems ROS: Stated complaint: CRAMPS/VOMITING/CLOTS/LEG PAIN Other details as noted in HPI Constitutional: denies: chills, fever Eyes: denies: eye pain, eye discharge, vision change ENT: denies: ear pain, throat pain Respiratory: denies: cough, shortness of breath, wheezing Cardiovascular: denies: chest pain, palpitations, edema, syncope, paroxysmal nocturnal dyspnea Endocrine: no symptoms reported Gastrointestinal: abdominal pain (suprapubic pain), nausea, vomiting. denies: diarrhea Genitourinary: denies: urgency, dysuria, discharge Musculoskeletal: denies: back pain, joint swelling, arthralgia Skin: denies: rash, lesions Neurological: denies: headache, weakness, paresthesias Psychiatric: denies: anxiety, depression Hematological/Lymphatic: denies: easy bleeding, easy bruising ED Past Medical Hx - Past Medical History Hx Headaches / Migraines: Yes Hx Asthma: Yes Additional medical history: fibroids, borderline diabetes, PCOS, Endometreosis, anemia - Surgical History Additional Surgical History: Ovarian cyst removal, hernia repair. Myomectomy on 12/23/2014 - Social History Smoking Status: Never Smoker Substance Use Type: Alcohol - Medications Home Medications: Home Medications Medication Instructions Recorded Confirmed Last Taken Type levoFLOXacin [Levaquin] 500 mg PO QDAY #5 tablet 05/31/14 Unknown Rx metroNIDAZOLE [Flagyl] 500 mg PO Q8HR 5 Days tablet 05/31/14 Unknown Rx Famotidine [Pepcid] 20 mg PO Q12H #60 tablet 01/14/15 Unknown Rx Ondansetron (Nf) [Zofran TAB] 8 mg PO Q8HR PRN #12 tablet 01/14/15 Unknown Rx Azithromycin [Zithromax Z-JOSELYN] 250 mg PO QDAY #6 tablet 12/15/15 Unknown Rx Azithromycin [Zithromax Z-JOSELYN] 250 mg PO DAILY #6 tablet 07/10/17 Unknown Rx Benzonatate [Tessalon Perle] 100 mg PO Q6H PRN #20 capsule 07/10/17 Unknown Rx Benzonatate [Tessalon Perles] 100 mg PO Q8HR #14 capsule 06/10/18 Unknown Rx Ibuprofen [Motrin 600 MG tab] 600 mg PO Q8H PRN #15 tablet 06/10/18 Unknown Rx Sulfamethoxazole/Trimethoprim 1 each PO BID #20 tablet 06/10/18 Unknown Rx [Bactrim Ds Tablet] traMADoL [Ultram] 50 mg PO Q6HR PRN #12 tablet 12/09/20 Unknown Rx Cyclobenzaprine HCl [Flexeril 5 MG 5 mg PO TID PRN #10 tablet 12/28/20 Unknown Rx TAB] Amoxicillin [Trimox] 1,000 mg PO Q8HR 7 Days capsule 04/15/21 Unknown Rx Azithromycin [Zithromax Z-JOSELYN] 250 mg PO DAILY #6 tablet 04/15/21 Unknown Rx Ibuprofen [Motrin] 800 mg PO Q8HR PRN #30 tablet 11/23/21 Unknown Rx Iron Fum,Ps/Folic/Bcomp,C No.9 1 each PO BID 30 Days #60 capsule 11/23/21 Unknown Rx [Integra Plus Capsule] Ondansetron [Zofran Odt] 4 mg PO Q8HR PRN #15 tab.rapdis 11/23/21 Unknown Rx cephALEXin [Keflex] 500 mg PO Q8HR 10 Days #30 cap 11/23/21 Unknown Rx traMADoL [Ultram 50 MG tab] 50 mg PO Q4HR PRN #12 tablet 11/23/21 Unknown Rx ED Physical Exam - General Limitations: No Limitations General appearance: alert, in no apparent distress - Head Head exam: Present: atraumatic, normocephalic, normal inspection - Eye Eye exam: Present: normal appearance, PERRL, EOMI Pupils: Present: normal accommodation - ENT ENT exam: Present: normal exam, normal orophraynx, mucous membranes moist, TM's normal bilaterally, normal external ear exam - Neck Neck exam: Present: normal inspection, full ROM. Absent: tenderness - Respiratory Respiratory exam: Present: normal lung sounds bilaterally. Absent: respiratory distress, wheezes, rales, rhonchi, stridor, chest wall tenderness, accessory muscle use, decreased breath sounds, prolonged expiratory - Cardiovascular Cardiovascular Exam: Present: regular rate, normal rhythm, normal heart sounds. Absent: systolic murmur, diastolic murmur, rubs, gallop - GI/Abdominal GI/Abdominal exam: Present: soft, tenderness (Palpable suprapubic tenderness), normal bowel sounds. Absent: guarding, rebound, hyperactive bowel sounds, hypoactive bowel sounds, mass - Bi-manual exam: Present: other (Pelvic exam deferred at this time) - Extremities Exam Extremities exam: Present: normal inspection, full ROM, normal capillary refill. Absent: tenderness - Back Exam Back exam: Present: normal inspection, full ROM. Absent: tenderness, CVA tenderness (R), CVA tenderness (L), muscle spasm, paraspinal tenderness, vertebral tenderness - Neurological Exam Neurological exam: Present: alert, oriented X3, CN II-XII intact, normal gait, reflexes normal - Psychiatric Psychiatric exam: Present: normal affect, normal mood - Skin Skin exam: Present: warm, dry, intact, normal color. Absent: rash ED Course Vital Signs 11/23/21 11/23/21 14:19 23:02 Temperature 97.5 F L Pulse Rate 94 H Respiratory 18 16 Rate Blood Pressure 164/101 [Left] O2 Sat by Pulse 100 Oximetry ED Medical Decision Making - Lab Data Result diagrams: 11/23/21 14:45 11/23/21 14:45 - Radiology Data Radiology results: report reviewed, image reviewed [facility] [address] [place] [address] Ultrasound Report Signed Patient: DOROTHY MENJIVAR MR#: [id number] : 1975 Acct:[id number] Age/Sex: 46 / F ADM Date: 11/23/21 Loc: ED Attending Dr: Ordering Physician: INDIA RAMIRES Date of Service: 11/23/21 Procedure(s): US pelvic complete Accession Number(s): [id number] cc: INDIA RAMIRES PELVIC ULTRASOUND INDICATION: Pelvic pain, heavy vaginal bleeding COMPARISON: CT abdomen pelvis 01/14/2015, report unavailable TECHNIQUE: Transabdominal and endovaginal FINDINGS: Uterus: Measures 8.0 x 4.6 x 7.3 cm. Endometrial stripe measures 7 mm. Trace nonspecific fluid is seen in the endometrial canal. Multiple leiomyomata are seen, both central and peripheral, measuring up to 2.6 cm. Right ovary: Measures 3.2 cm and shows a 2.1 cm mildly complex cyst. Blood flow is noted. Left ovary: Measures 3 cm and shows a 1.7 cm follicular-type cyst. Blood flow is noted. Free fluid: Minimal IMPRESSION: 1. Small uterine leiomyomata 2. Bilateral small ovarian cysts, mildly complex on the right, all probably physiologic Signer Name: Nikunj Villalpando MD Signed: 11/23/2021 10:48 PM Workstation Name: [id number] Transcribed By: IDA Dictated By: Nikunj Villalpando MD Electronically Authenticated By: Nikunj Villalpando MD Signed Date/Time: 11/23/212247 DD/ 42 TD/TT: [facility] [address] [place] [address] Ultrasound Report Signed Patient: DOROTHY MENJIVAR MR#: [id number] : 1975 Acct:[id number] Age/Sex: 46 / F ADM Date: 11/23/21 Loc: ED Attending Dr: Ordering Physician: INDIA RAMIRES Date of Service: 11/23/21 Procedure(s): US transvaginal Accession Number(s): [id number] cc: INDIA RAMIRES PELVIC ULTRASOUND INDICATION: Pelvic pain, heavy vaginal bleeding COMPARISON: CT abdomen pelvis 01/14/2015, report unavailable TECHNIQUE: Transabdominal and endovaginal FINDINGS: Uterus: Measures 8.0 x 4.6 x 7.3 cm. Endometrial stripe measures 7 mm. Trace nonspecific fluid is seen in the endometrial canal. Multiple leiomyomata are seen, both central and peripheral, measuring up to 2.6 cm. Right ovary: Measures 3.2 cm and shows a 2.1 cm mildly complex cyst. Blood flow is noted. Left ovary: Measures 3 cm and shows a 1.7 cm follicular-type cyst. Blood flow is noted. Free fluid: Minimal IMPRESSION: 1. Small uterine leiomyomata 2. Bilateral small ovarian cysts, mildly complex on the right, all probably physiologic Signer Name: Nikunj Villalpando MD Signed: 11/23/2021 10:48 PM Workstation Name: [id number] Transcribed By: IDA Dictated By: Nikunj Villalpando MD Electronically Authenticated By: Nikunj Villalpando MD Signed Date/Time: 11/23/212247 DD/ 42 TD/TT: - Medical Decision Making This is a 46-year-old -[place] female with a history of migraine headaches, asthma, uterine fibroids, PCOS, endometriosis and chronic iron deficiency anemia presents to the ED with complaint of acute onset persistent suprapubic pain with nausea and vomiting for the last 2 days after the onset of her menstrual cycle. Patient states that she usually experiences dysmenorrhea but the current symptoms of pelvic pain are worse than what she has experienced before, with nausea and vomiting despite taking ibuprofen at home. Patient states that in the last 12 hours she has seen large chunks of blood clots with her menstrual cycle. In the ED, patient is alert and oriented x3 and is not in any distress. Patient was treated for pain in the ED and also given antiemetics. Lab test results were reviewed and showed mild urinary tract infection in urinalysis. The rest of the lab test results are nonactionable. Transvaginal and pelvic ultrasound showed small uterine leiomyomata and dougie ateral small ovarian cysts, mildly complex on the right, all probably physiologic. On reevaluation, patient's pain is well controlled medication. Patient will discharge home on pain medications and antibiotics for UTI and was advised to follow-up with her [employer] [employer] physician in 7 to 10 days for reevaluation or return to the ED immediately if symptoms get worse. - Differential Diagnosis Dysmenorrhea; UTI; ovarian cyst; uterine fibroids; endometriosis Critical care attestation.: If time is entered above; I have spent that time in minutes in the direct care of this critically ill patient, excluding procedure time. ED Disposition Clinical Impression: Acute suprapubic pain, Severe dysmenorrhea, Menometrorrhagia, Acute urinary tract infection, Bilateral ovarian cysts Uterine fibroid Qualifiers: Uterine leiomyoma location: unspecified location Qualified Code(s): D25.9 - Leiomyoma of uterus, unspecified Disposition: 01 HOME / SELF CARE / HOMELESS Is pt being admited?: No Does the pt Need Aspirin: No Condition: Stable Instructions: Pelvic Pain, Female, [id number], Metrorrhagia, [id number], Urinary Tract Infection, Adult, [id number], Abdominal Pain, Adult, [id number], Menorrhagia, [id number], Dysmenorrhea, [id number], Abdominal Pain (ED), Uterine Fibroids, Ovarian Cyst Additional Instructions: All lab test results were reviewed and are all nonactionable except for urinary tract infection in urinalysis. The transvaginal and pelvic ultrasound showed s mall uterine leiomyomata and bilateral small ovarian cysts, mildly complex on the right, all probably physiologic. Therefore take medications as advised, drink plenty of fluids, follow-up with your [facility] [employer] physician in 7 to 10 days for reevaluation. Return to the ED immediately if symptoms get worse. Prescriptions: Iron Fum,Ps/Folic/Bcomp,C No.9 [Integra Plus Capsule] 1 each PO BID 30 Days #60 capsule cephALEXin [Keflex] 500 mg PO Q8HR 10 Days #30 cap Ibuprofen [Motrin] 800 mg PO Q8HR PRN #30 tablet PRN Reason: Pain , Severe (7-10) traMADoL [Ultram 50 MG tab] 50 mg PO Q4HR PRN #12 tablet PRN Reason: Pain Ondansetron [Zofran Odt] 4 mg PO Q8HR PRN #15 tab.rapdis PRN Reason: Nausea Referrals: LENIN ABRAMS MD [Staff Physician] - 3-5 Days Forms: Work/School Release Form(ED) Time of Disposition: 22:23 Print Language: KINYARWANDA
--- NOTE | 2021-11-23 22:53 | Ultrasound Report ---
PELVIC ULTRASOUND INDICATION: Pelvic pain, heavy vaginal bleeding COMPARISON: CT abdomen pelvis 01/14/2015, report unavailable TECHNIQUE: Transabdominal and endovaginal FINDINGS: Uterus: Measures 8.0 x 4.6 x 7.3 cm. Endometrial stripe measures 7 mm. Trace nonspecific fluid is see n in the endometrial canal. Multiple leiomyomata are seen, both central and peripheral, measuring up to 2.6 cm. Right ovary: Measures 3.2 cm and shows a 2.1 cm mildly complex cyst. Blood flow is noted. Left ovary: Measures 3 cm and shows a 1.7 cm follicular-type cyst. Blood flow is noted. Free fluid: Minimal IMPRESSION: 1. Small uterine leiomyomata 2. Bilateral small ovarian cysts, mildly complex on the right, all probably physiologic Signer Name: Nikunj Villalpando MD Signed: 11/23/2021 10:48 PM Workstation Name: [id number]
[2021-11-24 00:04] VITALS: BP 156/96
== END 2021-11-24 00:04 | disposition home or self-care (01) ==
LOC: ED 13:06
DX: N94.6 Dysmenorrhea, unspecified (principal); R10.2 Pelvic and perineal pain; N92.1 Excessive and frequent menstruation with irregular cycle; N39.0 Urinary tract infection, site not specified; N83.202 Unspecified ovarian cyst, left side; N83.201 Unspecified ovarian cyst, right side; D25.9 Leiomyoma of uterus, unspecified; G43.909 Migraine, unspecified, not intractable, without status migrainosus; J45.909 Unspecified asthma, uncomplicated; E11.9 Type 2 diabetes mellitus without complications; D64.9 Anemia, unspecified; Z98.890 Other specified postprocedural states
CPT/HCPCS: 36415; 76830; 76856; 80048; 81001; 83690; 84703; 85025; 87086; 99284; J3490; Q0162